=== PATIENT | female | born 1985 | race Caucasian/White ===

== ENCOUNTER 2017-12-29 07:49 | Inpatient (IN) | payer MEDICAID ==
[2017-12-29] VITALS (34 sets, daily range): BP systolic 131–200; BP diastolic 69–110; PULSE 76–141; TEMP 97.6–98.4
[~2017-12-29] VITALS: Ht 175.3 cm; Wt 111.4 kg
[2017-12-29] MEDS ORDERED: PRENATAL1 TA7 PO (08:21)
[2017-12-29 09:29] LABS: BASO # 0.1 (0.0-0.2); BASO % 0.4 % (0.0-2.0); EOS % 0.1 % (0-4.0); GRAN # 9.6 (1.4-6.5); GRAN % 79.5 % (42.2-75.2); HEMATOCRIT 39.1 % (37.0-47.0); HEMOGLOBIN 13.5 g/dl (12.5-16.0); LYMPH # 1.6 (1.2-3.4); MEAN CELL VOLUME 86 fl (80.0-100.0); MEAN CORPUSCULAR HEMOGLOBIN 30 pg (27.0-31.0); MEAN CORPUSCULAR HGB CONC 35 g/dl (33.0-37.0); MEAN PLATELET VOLUME 10.3 fl (7.4-10.4); MONO # 0.8 (0.1-0.6); MONO % 6.3 % (1.7-9.3); PLATELET COUNT 237 K/mm3 (130-400); RED BLOOD COUNT 4.55 M/mm3 (4.10-5.30); REDCELL DISTRIBUTION WIDTH-CV 13.5 % (11.5-14.5)
[2017-12-29 09:32] LABS: ALBUMIN 3.1 gm/dL (3.5-5.0); BILIRUBIN,TOTAL 0.3 mg/dL (0.0-1.0); CALCIUM 8.6 mg/dL (8.4-10.2); CREATININE, serum 0.46 mg/dL (0.52-1.25); TOTAL PROTEIN 6.2 gm/dL (6.4-8.2)
[2017-12-30 01:00] VITALS: BP 115/54; PULSE 101; TEMP 98.4
[2017-12-30 02:27] VITALS: BP 107/52; PULSE 92
[2017-12-30 05:15] VITALS: BP 107/49; PULSE 79
[2017-12-30 05:49] LABS: COLLECTION METHOD CATHETER
[2017-12-30 05:54] LABS: PH 5 (5-8); SQUAMOUS EPITHELIAL None Seen /hpf; URINE APPEARANCE Clear; URINE BACTERIA None Seen /hpf; URINE BILIRUBIN Negative (NEGATIVE); URINE BLOOD 3+ (NEGATIVE); URINE COLOR Straw; URINE GLUCOSE Negative (NEGATIVE); URINE KETONE Negative (NEGATIVE); URINE LEUKOCYTE ESTERASE Negative (NEGATIVE); URINE NITRATE Negative (NEGATIVE); URINE PROTEIN(semi-quant) Negative (NEGATIVE); URINE RBC None Seen /hpf; URINE UROBILINOGEN Negative (NEGATIVE)
[2017-12-30 07:32] LABS: MEAN CELL VOLUME 87 fl (80.0-100.0); MEAN CORPUSCULAR HGB CONC 35 g/dl (33.0-37.0); MEAN PLATELET VOLUME 10.2 fl (7.4-10.4); PLATELET COUNT 218 K/mm3 (130-400)
[2017-12-30 07:33] LABS: HEMATOCRIT 33.2 % (37.0-47.0); HEMOGLOBIN 11.5 g/dl (12.5-16.0); MEAN CORPUSCULAR HEMOGLOBIN 30 pg (27.0-31.0)
[2017-12-30 07:36] LABS: ALBUMIN 2.4 gm/dL (3.5-5.0); BILIRUBIN,TOTAL 0.2 mg/dL (0.0-1.0); CALCIUM 8.2 mg/dL (8.4-10.2); CREATININE, serum 0.48 mg/dL (0.52-1.25); POTASSIUM 3.4 mmol/L (3.4-5.0)
[2017-12-30 07:50] LABS: BAND 6 % (0-10); BASOPHIL 1 % (0-2); LYMPHOCYTE 24 % (20.0-51.0); NEUTROPHILS 63 % (42.0-75.2); PLATELET ESTIMATE NORMAL (NORMAL)
[2017-12-30 07:51] LABS: TOXIC GRANULATION PRESENT
[2017-12-30 08:00] VITALS: BP 136/73; PULSE 97; TEMP 97.2
[2017-12-30] MEDS ORDERED: TRANDATE 200MG200 MG PO (09:23)
[2017-12-30] MEDS ORDERED: IBU600 MG PO (09:23)
[2017-12-30] MEDS ORDERED: PERCOCET 325 MG1 TA2 PO (09:23)
== END 2017-12-30 12:20 | disposition home or self-care (01) | DRG 775 ==
LOC: LDRO 07:49 → OB 08:00 → LDR 08:00 → OB 18:25
PROVIDERS: Student in an Organized Health Care Education/Training Program
PROC: 10E0XZZ Delivery of Products of Conception, External Approach (ICD-10-PCS; principal; 2017-12-29)
PROC: 0KQM0ZZ Repair Perineum Muscle, Open Approach (ICD-10-PCS; 2017-12-29)
DX: O48.0 Post-term pregnancy (principal); O36.0130 Maternal care for anti-D [Rh] antibodies, third trimester, not applicable or unspecified; O70.1 Second degree perineal laceration during delivery; O99.824 Streptococcus B carrier state complicating childbirth; O13.4 Gestational [pregnancy-induced] hypertension without significant proteinuria, complicating childbirth; O69.81X0 Labor and delivery complicated by cord around neck, without compression, not applicable or unspecified; O77.0 Labor and delivery complicated by meconium in amniotic fluid; Z3A.41 41 weeks gestation of pregnancy; Z37.0 Single live birth
CPT/HCPCS: J0360; J2210; J2540; J2590; J2791; J3010; J7120